=== PATIENT | female | born 1965 | race Caucasian/White ===

== ENCOUNTER → 2016-06-22 | Outpatient (CLI) | payer BC ==
[2016-06-22 13:00] LABS: CH 29.4; CHCM 32.7; HCT 40.3 % (34.0-46.0); HGB 13.4 gm/dL (11.4-16.0); MCH 30.1 pg (25.0-35.0); MCHC 33.4 g/dL (31.0-37.0); MCV 90.3 fL (80.0-100.0); Mean Platelet Volume 7.9; RBC 4.46 m/uL (3.80-5.40); RDW 13.4 % (11.5-15.5); WBC 5.3 k/uL (3.8-10.6)
[2016-06-22 13:06] LABS: ALT 45 U/L (9-52); AST 33 U/L (14-36); Alkaline Phosphatase 72 U/L (38-126); Amylase 41 U/L (30-110); Anion Gap 8 mmol/L; Blood Urea Nitrogen 10 mg/dL (7-17); Calcium 9.1 mg/dL (8.4-10.2); Carbon Dioxide 31 mmol/L (22-30); Chloride 102 mmol/L (98-107); Glucose 96 mg/dL (74-99); Non-African American GFR(MDRD) >60 (>60 ml/min/1.73 sqM); Sodium 141 mmol/L (137-145); Total Bilirubin 0.6 mg/dL (0.2-1.3); Total Protein 7.1 g/dL (6.3-8.2)
--- NOTE | 2016-06-22 14:34 | CT ---
EXAMINATION TYPE: CT abdomen pelvis w con DATE OF EXAM: 06/22/2016 2:16 PM COMPARISON: NONE HISTORY: Right upper quadrant pain CT DLP: 867.8 mGycm CONTRAST: CT scan of the abdomen and pelvis is performed with Oral Contrast and with IV Contrast, patient injec makayla with 100 mL of Omnipaque 300. FINDINGS: LUNG BASES-: No visible nodule. No infiltrate. Small sliding-type hiatal hernia noted. LIVER/GB: The gallbladder is contracted. No obvious cholelithiasis is appreciated. 9 mm hemangioma posterior segment right hepatic lobe. Biliary tree is of normal caliber. PANCREAS: No inflammation. No distinct mass. SPLEEN: No splenic enlargement. No lesion seen. ADRENALS: No nodule. No thickening. KIDNEYS/BLADDER: No hydronephrosis. No nephrolithiasis. No disctinct renal mass. Urinary bladder g rossly unremarkable. BOWEL: Normal appendix. Normal bowel caliber. No inflammation. GENITAL ORGANS: 2 cm right ovarian cyst. Left ovary and uterus are unremarkable. LYMPH NODES: No greater than 1cm abdominal or pelvic lymph nodes are appreciated. AORTA: No significant abnormality. OSSEOUS STRUCTURES: No significant abnormality is seen. OTHER: No significant additional abnormality is seen. IMPRESSION: 1. No acute intra-abdominal or intrapelvic process seen at this time. 2. Right ovarian cyst that consider follow-up with ultrasound in 6 weeks. 3. Mild hepatic steatosis. Small hepatic hemangioma.
== END | disposition home or self-care (01) ==
LOC: RADCTMAIN 12:15
PROVIDERS: ATTEND Family Medicine
DX: N83.201 Unspecified ovarian cyst, right side (principal); K76.0 Fatty (change of) liver, not elsewhere classified; D18.03 Hemangioma of intra-abdominal structures
CPT/HCPCS: 80053; 82150; 83690; 85027; 74177; 36415; Q9967

== ENCOUNTER → 2018-02-01 | Outpatient (CLI) | payer BC ==
--- NOTE | 2018-02-02 11:16 | MM ---
Reason for exam: screening (asymptomatic). Last mammogram was performed 3 years and 9 months ago. History: Patient is postmenopausal. Physical Findings: A clinical breast exam by your physician is recommended on an annual basis and results should be correlated with mammographic findings. MG 3D Screening Mammo W/Cad Bilateral CC and MLO view(s) were taken. Prior study comparison: May 13, 2014, bilateral MG screening mammo w CAD. There are scattered fibroglandular densities. No significant changes when compared with prior studies. ASSESSMENT: Benign, BI-RAD 2 RECOMMENDATION: Routine screening mammogram of both breasts in 1 year.
== END | disposition home or self-care (01) ==
LOC: RADMAMWWP 15:19
PROVIDERS: ATTEND Family Medicine
DX: Z12.31 Encounter for screening mammogram for malignant neoplasm of breast (principal)
CPT/HCPCS: 77063; 77067

== ENCOUNTER → 2018-08-16 | Outpatient (CLI) | payer BC ==
--- NOTE | 2018-08-16 09:26 | US ---
EXAMINATION TYPE: US renal artery duplex complet DATE OF EXAM: 08/16/2018 COMPARISON: CT CLINICAL HISTORY: I16.0 Uncontrolled hypertension. Patient stated has had 3 weeks of newly diagnosed MEASUREMENTS: RENAL SIZE: Rt Kidney: 10.5 x 5.8 x 3.9cm Lt Kidney: 10.4 x 4.3 x 5.2cm RESISTANCE INDEX Right: 0.65 Left: 0.69 RA/AO RATIO (< 3.5 ) Right: 1.5 Left: 1.1 RA VELOCITY ( < 180 cm/s) Right: 135.8 distally Left: 100.3 mid Aorta: size is wnl throughout. Right kidney: no hydronephrosis or masses seen. Left Kidney: no hydronephrosis or masses seen. Overlying bowel gas at left mid renal artery limited t he entire renal artery lumen visualization in one position. IMPRESSION: No sonographic evidence of renal arterial stenosis. No hydronephrosis or nephrolithiasis.
== END | disposition home or self-care (01) ==
LOC: RADUSWWP 07:47
PROVIDERS: ATTEND Family Medicine
DX: I10 Essential (primary) hypertension (principal); I16.0 Hypertensive urgency
CPT/HCPCS: 93975

== ENCOUNTER → 2020-11-16 | Outpatient (CLI) | payer BC ==
--- NOTE | 2020-11-17 11:48 | MM ---
Reason for exam: screening (asymptomatic). Last mammogram was performed 2 years and 9 months ago. History: Patient is postmenopausal. Took hormonal contraceptives for 30 years. Physical Findings: A clinical breast exam by your physician is recommended on an annual basis and results should be correlated with mammographic findings. MG Screening Mammo w CAD Bilateral CC and MLO view(s) were taken. Prior study comparison: February 01, 2018, bilateral MG 3d screening mammo w/cad. May 13, 2014, bilateral MG screening mammo w CAD. The breast tissue is heterogeneously dense. This may lower the sensitivity of mammography. Focal asymmetry left MLO view zone B. This finding is changed when compared with previous exams. ASSESSMENT: Incomplete: need additional imaging evaluation, BI-RAD 0 RECOMMENDATION: Special view mammogram of the left breast. If lesion persists on supplemental views, image directed ultrasound is recommended. [facility] will attempt to contact patient to return for supplemental views and ultrasound if indicated.
== END | disposition home or self-care (01) ==
LOC: RADMAMWWP 07:53
PROVIDERS: ATTEND Family Medicine
DX: Z12.31 Encounter for screening mammogram for malignant neoplasm of breast (principal); Z78.0 Asymptomatic menopausal state
CPT/HCPCS: 77067

== ENCOUNTER → 2020-11-19 | Outpatient (CLI) | payer BC ==
--- NOTE | 2020-11-19 11:00 | MM ---
Reason for exam: additional evaluation requested from abnormal screening. Last mammogram was performed less than 1 month ago. History: Patient is postmenopausal. Took hormonal contraceptives for 30 years. Physical Findings: Nurse did not find any significant physical abnormalities on exam. MG Work Up Mamm w CAD LT Spot compression CC, spot compression MLO, and ML view(s) were taken of the left breast. Prior study comparison: November 16, 2020, bilateral MG screening mammo w CAD. February 01, 2018, bilateral MG 3d screening mammo w/cad. There are scattered fibroglandular densities. Central focal asymmetry incompletely disperses on spot compression but does not appear to persist on lateral view. These results were verbally communicated with the patient and result sheet given to the patient on 11/19/20. ASSESSMENT: Incomplete: need additional imaging evaluation, BI-RAD 0 RECOMMENDATION: Ultrasound of the left breast. (subareolar and periareolar)
--- NOTE | 2020-11-19 11:01 | USB ---
Reason for exam: additional evaluation requested from abnormal screening. History: Patient is postmenopausal. Took hormonal contraceptives for 30 years. US Breast Limited LT Left limited breast ultrasound including focal area of concern, retroareolar and axilla demonstrates no cystic or solid lesion seen. Periareolar and subareolar area imaged. These results were verbally communicated with the patient and result sheet given to the patient on 11/19/20. ASSESSMENT: Probably benign, BI-RAD 3 RECOMMENDATION: Follow-up diagnostic mammogram of the left breast in 6 months.
== END | disposition home or self-care (01) ==
LOC: RADMAMWWP 07:01
PROVIDERS: ATTEND Family Medicine
DX: N64.89 Other specified disorders of breast (principal); Z78.0 Asymptomatic menopausal state
CPT/HCPCS: 77065

== ENCOUNTER → 2021-09-29 | Outpatient (CLI) | payer BC ==
--- NOTE | 2021-09-29 07:37 | MM ---
Reason for Exam: Additional evaluation requested from abnormal screening. Last screening mammogram was performed 11 month(s) ago. Patient History: Menarche at age 11. First Full-Term at age 14. Postmenopausal. Patient has history of breast feeding. Patient used Hormonal Contraceptives for 30 years. Risk Values: Claire 5 year model risk: 0.9%. NCI Lifetime model risk: 5.7%. Prior Study Comparison: 02/01/2018 Bilateral Screening Mammogram, [facility]. 11/16/2020 Bilateral Screening Mammogram, [facility]. 11/19/2020 Left Diagnostic Mammogram, [facility]. Tissue Density: Left: There are scattered fibroglandular densities. Findings: Analyzed By CAD. No suspicious persistent density within the anterior left breast to correspond to prior abnormality. Findings are otherwise similar to comparison studies. Overall Assessment: Benign, BI-RAD 2 Management: Screening Mammogram of both breasts in 6 months. A clinical breast exam by your physician is recommended on an annual basis and results should be correlated with mammographic findings. This exam should not preclude additional follow-up of suspicious palpable abnormalities. Results were given to the patient verbally at the time of exam. Electronically signed and approved by: Ze Nichols D.O. Radiologis
--- NOTE | 2021-09-29 17:35 | BD ---
EXAMINATION TYPE: Axial Bone Density DATE OF EXAM: 09/29/2021 COMPARISON: FIRST BONE DENSITY BASELINE STUDY CLINICAL HISTORY: 56 years year old Female. ICD-10 CODE: N95.1 MENOPAUSAL AND FEMALE CLIMACTERIC STA Height: 67.2 Weight: 194 FRAX RISK QUESTIONS: NOTHING TO NOTE HERE RISK FACTORS HISTORY OF: Postmenopausal woman: 49 YRS OLD Hyperparathyroidism: NO Adrenal Insufficiency: NO MEDICATIONS: Additional Medications: BP MEDS, XANAX, REFLUX MED, MULTIVITAMIN, Additional History: HYPERTENSION, ANXIETY, REFLUX, EXAM MEASUREMENTS: Bone mineral densitometry was performed using the [employer] System. Bone mineral density as measured about the Lumbar spine is: ----- L1-L4(G/cm2): 1.248 T Score Values are as follows: ----- L1: 0.8 ----- L2: 0.7 ----- L3: 0.3 ----- L4: 0.4 ----- L1-L4: 0.6 Bone mineral density BASELINE Bone mineral density about the R hip (g/cm2): 0.906 Bone mineral density about the L hip (g/cm2): 0.937 T Score values are as follows: -----R Neck: -1.6 -----L Neck: -1.5 -----R Total: -0.8 -----L Total: -0.6 Bone mineral density BASELINE FRAX%s: The graph provided illustrates a 7.4% chance for a major osteoporotic fx and a 0.6% chance fo r the hips probability for fx in 10 years time. IMPRESSION: Osteopenia (T Score between -2.5 and -1). There is slightly increased risk of fracture and the patient may be considered for treatment. Re-Screen 2-5 years. NOTE: T-SCORE=SD OF THE YOUNG ADULT MEAN.
== END | disposition home or self-care (01) ==
LOC: RADMAMWWP 07:03
PROVIDERS: ATTEND Family Medicine
DX: R92.8 Other abnormal and inconclusive findings on diagnostic imaging of breast (principal); Z78.0 Asymptomatic menopausal state
CPT/HCPCS: 77065; 77080

== ENCOUNTER → 2022-10-12 | Outpatient (CLI) | payer BC ==
--- NOTE | 2022-10-12 13:53 | MM ---
Reason for Exam: Screening (asymptomatic). Last mammogram was performed 1 year(s) and 11 month(s) ago. Patient History: Menarche at age 11. First Full-Term at age 14. Postmenopausal. Patient has history of breast feeding. Patient used Hormonal Contraceptives for 30 years. Risk Values: Claire 5 year model risk: 1.0%. NCI Lifetime model risk: 5.6%. Prior Study Comparison: 11/16/2020 Bilateral Screening Mammogram, [facility]. 11/19/2020 Left Diagnostic Mammogram, [facility]. 09/29/2021 Left MG diagnostic mammo LT w CAD, [facility]. Tissue Density: There are scattered fibroglandular densities. Findings: Analyzed By CAD. There is no suspicious group of microcalcifications or new suspicious mass in either breast. Overall Assessment: Negative, BI-RAD 1 Management: Screening Mammogram of both breasts in 1 year. . Patient should continue monthly self-breast exams. A clinical breast exam by your physician is recommended on an annual basis. This exam should not preclude additional follow-up of suspicious palpable abnormalities. Note on Claire scores and lifetime risk: 1. A Claire score greater than 3% is considered moderate risk. If this is the case, consider specialist referral to assess eligibility for a risk reducing agent. 2. If overall lifetime risk for the development of breast cancer is 20% or higher, the patient may qualify for future screening with alternating mammogram and breast MRI. Electronically signed and approved by: Tyree Tavares M.D. Radiologis
== END | disposition home or self-care (01) ==
LOC: RADMAMWWP 07:08
PROVIDERS: ATTEND Family Medicine
DX: Z12.31 Encounter for screening mammogram for malignant neoplasm of breast (principal); Z78.0 Asymptomatic menopausal state
CPT/HCPCS: 77067

== ENCOUNTER → 2023-10-18 | Outpatient (CLI) | payer BC ==
--- NOTE | 2023-10-20 18:25 | BD ---
EXAMINATION TYPE: Axial Bone Density DATE OF EXAM: 10/18/2023 CLINICAL HISTORY: 58 years old Female. ICD-10 CODE: Z78.0 ASYMPTOMATIC MENOPAUSAL Height: 67.5 Weight: 181.1 FRAX RISK QUESTIONS: Alcohol (3 or more units per day): no Family History (Parent hip fracture): no Glucocorticoids (More than 3mos): no (Ex: prednisone, prednisolone, methylprednisolone, dexamethasone, and hydrocortisone). History of Fracture in Adulthood: no Secondary Osteoporosis: 1. Type 1 Diabetes: no 2. Hyperthyroidism: no 3. Menopause before 45: no 4. Malnutrition: no 5. Chronic liver disease: no Rheumatoid Arthritis: no Current Tobacco Use: no RISK FACTORS HISTORY OF: Hip Fracture (Right/Left): no Spine Fracture: no History of Wrist Fracture: no Surgery to Spine/Hip(right/left)/Wrist (right/left): no MEDICATIONS: Thyroid Medications: no Osteoporosis Medications: no EXAM MEASUREMENTS: Bone mineral densitometry was performed using the [employer] System. Bone mineral density as measured about the Lumbar spine is: ----- L1-L4(G/cm2): 1.309 T Score Values are as follows: ----- L1: 1.0 ----- L2: 1.2 ----- L3: 1.2 ----- L4: 0.8 ----- L1-L4: 1.1 Z Score Values are as follows: ----- L1: 1.6 ----- L2: 1.8 ----- L3: 1.8 ----- L4: 1.4 ----- L1-L4: 1.7 Bone mineral density has: increased 4.9 % since study of: 09/29/2021 Bone mineral density about the R hip (g/cm2): 0.891 Bone mineral density about the L hip (g/cm2): 0.904 T Score values are as follows: -----R Neck: -1.7 -----L Neck: -1.5 -----R Total: -0.9 -----L Total: -0.8 Z Score values are as follows: -----R Neck: -0.9 -----L Neck: -0.7 -----R Total: -0.4 -----L Total: -0.3 Bone mineral density has: decreased -2.7 % since study of: 09/29/2021 FRAX%s: The graph provided illustrates a 8.5% chance for a major osteoporotic fx and a 0.9% chance fo r the hips probability for fx in 10 years time. IMPRESSION: Osteopenia as indicated by T score values within both hips. NOTE: T-SCORE=SD OF THE YOUNG ADULT MEAN.
--- NOTE | 2023-10-25 07:39 | MM ---
Reason for Exam: Screening (asymptomatic). Last screening mammogram was performed 12 month(s) ago. Patient History: Menarche at age 11. First Full-Term at age 14. Postmenopausal. Patient has history of breast feeding. Patient used Hormonal Contraceptives for 30 years. Risk Values: Claire 5 year model risk: 1.0%. NCI Lifetime model risk: 5.5%. Prior Study Comparison: 11/19/2020 Left Diagnostic Mammogram, [facility]. 09/29/2021 Left MG diagnostic mammo LT w CAD, [facility]. 10/12/2022 Bilateral MG screening mammo w CAD, [facility]. Tissue Density: There are scattered areas of fibroglandular density. Findings: Analyzed By CAD. Right breast: There is no suspicious group of microcalcifications or new suspicious mass. Left breast: There is no suspicious group of microcalcifications or new suspicious mass. Overall Assessment: Negative, BI-RAD 1 Management: Screening Mammogram of both breasts in [address] [facility] will attempt to contact patient to return for supplemental views and ultrasound if indicated. Patient should continue monthly self-breast exams. A clinical breast exam by your physician is recommended on an annual basis. This exam should not preclude additional follow-up of suspicious palpable abnormalities. Note on Claire scores and lifetime risk: 1. A Claire score greater than 3% is considered moderate risk. If this is the case, consider specialist referral to assess eligibility for a risk reducing agent. 2. If overall lifetime risk for the development of breast cancer is 20% or higher, the patient may qualify for future screening with alternating mammogram and breast MRI. Electronically signed and approved by: Madan Chatman DO
== END | disposition home or self-care (01) ==
LOC: RADMAMWWP 07:09
PROVIDERS: ATTEND Family Medicine
DX: Z12.31 Encounter for screening mammogram for malignant neoplasm of breast (principal); Z78.0 Asymptomatic menopausal state; R92.323 Mammographic fibroglandular density, bilateral breasts; M85.89 Other specified disorders of bone density and structure, multiple sites
CPT/HCPCS: 77067; 77080

== ENCOUNTER → 2024-09-10 | Outpatient (CLI) | payer BC ==
--- NOTE | 2024-09-10 21:59 | CA ---
Stress Echo Report Adriana Limon Age: 59 Gender: F : 1965 Exam Date: 09/10/2024 10:08 Exam Location: [facility] Ht (in): 67 Wt (lb): 176 Ordering Physician: Maribel Caro DO Referring Physician: Patricia Faria PAC Waiter[employer]: [employer] Technologist Procedure CPT: Indication: R94.39,I10 ABNORMAL RESULT OF OTHER CARDIOVASCULAR ICD-9 Codes: Rhythm: Patient History: FAMILT HX. Cardiac Medications: FLUOXETINE,,,,,, LISINOPRIL,,,,,, OMEPRAZOLE,,,,, Medications in past 24 hours: Contrast: Stress Results Protocol: Ivan Total dose(mL): Exercise Duration (min:sec): Max ST Depression (mm): Angina Score: Morales Score: METS: 4.4 Resting HR: 88 Resting BP: 157 / 76 Peak HR: 162 Peak BP: 208 / 88 Max Predicted HR: 160 101 % Max Predicted HR Target HR: 136 Double Product: [id number] Stress Summary: BP Response: Reason for Termination: MAX EXERTION/TARGET HR Cardiac Symptoms: NO SYMPTOMS ECG Analysis Resting ECG: Normal sinus rhythm, normal axis heart rate 76 bpm Stress EC mm horizontal ST depression noticed in inferolateral leads at peak stress persisting up to 1 minute in recovery. Arrhythmia: No sustained arrhythmias noticed. Occasional PACs noticed. Echo Analysis Resting Echo: Normal global and segmental systolic function with no resting regional wall motion abnormality. Peak Echo Analysis: Mild hypokinesis of mid to distal anterolateral wall noticed at peak stress. MEASUREMENTS (Male/Female) Normal Values CONCLUSIONS Poor exercise tolerance for age achieving only 4.4 METS Abnormal ECG response to treadmill exercise Abnormal echocardiographic response to treadmill exercise Hypertensive response to exercise Recommend further cardiac testing to rule out obstructive CAD Dr Tu Adams (Electronically Signed) Final Date: 10 September 2024 21:58
== END | disposition home or self-care (01) ==
LOC: RADNMMAIN 09:40
PROVIDERS: ATTEND Family Medicine
DX: I10 Essential (primary) hypertension (principal); R94.31 Abnormal electrocardiogram [ECG] [EKG]
CPT/HCPCS: 93351